=== PATIENT | male | born 1975 ===

== ENCOUNTER 2022-02-01 20:30 | Inpatient (IN) ==
[2022-02-01] MEDS ORDERED: LORazepam 2 mg VIAL 1 ml IV PUSH ONE ×3 (22:17→23:30)
[2022-02-01] MEDS ORDERED: Lorazepam PYXIS KEY PRN ×3 (22:17→23:30)
[2022-02-01] MEDS ORDERED: Amoxicillin/Clavul 875/125 TAB (Augmentin 875 tab) PO ONE (22:42)
[2022-02-01 22:44] LABS: ABS Basophils 0.1 10^3/ul (0-0.2); ABS Eosinophils 0.1 10^3/ul (0-0.6); ABS Lymphocytes 0.8 10^3/ul (1.0-4.8); ABS Monocytes 0.5 10^3/ul (0-0.8); ABS Neutrophils 5.4 10^3/ul (1.5-7.7); Eosinophil % 1.2 %; Hematocrit 38 % (42-52); Hemoglobin 12.8 g/dL (14.0-18.0); Lymphocyte % 11.4 %; Mean Corpuscular HGB Conc 34 g/dL (31-36); Mean Corpuscular Hemoglobin 34 pg (27-31); Mean Corpuscular Volume 101 fL (80-94); Mean Platelet Volume 6.8 fL (7.4-10.4); Platelet Count 176 10^3/uL (150-450); Red Blood Count 3.77 10^6 /uL (4.18-5.48); Red Cell Distribution Width 13 % (10-15); White Blood Count 6.8 10^3/uL (3.5-10.8)
[2022-02-01 23:22] LABS: ALT 101 U/L (7-52); AST 138 U/L (13-39); Albumin 4.5 g/dL (3.2-5.2); Albumin/Globulin Ratio 1.8 (1-3); Alkaline Phosphatase 158 U/L (35-149); Anion Gap 12 mmol/L (2-11); Blood Urea Nitrogen 12 mg/dL (6-24); C Reactive Protein 13.89 mg/L (<8.01); CO2 Carbon Dioxide 26 mmol/L (22-32); Calcium 9.4 mg/dL (8.6-10.3); Chloride 101 mmol/L (101-111); Creatine Kinase 590 U/L (10-223); Globulin 2.5 g/dL (2-4); Glucose 106 mg/dL (70-100); Magnesium 1.5 mg/dL (1.9-2.7); Potassium 3.6 mmol/L (3.5-5.0); Sodium 139 mmol/L (135-145); eGFR CKD-EPI 113.2 (>60)
[2022-02-01] MEDS ORDERED: Magnesium Sulfate 2 gm BAG 2 GM/50 ML BAG IVPB ONE (23:23)
[2022-02-01] MEDS ORDERED: Potassium Chlor 20 meq TAB.ER PO ONE (23:28)
[2022-02-02] MEDS ORDERED: Ondansetron 4 mg VIAL 2 MG/ML 2 ml VIAL IV PRN (00:06)
[2022-02-02] MEDS ORDERED: Thiamine 100 MG/ML 2 ml VIAL (200 mg) IM ONE (00:11)
[2022-02-02] MEDS ORDERED: LORazepam 2 mg VIAL 1 ml IV PUSH SCH (01:00)
[2022-02-02 01:14] LABS: Activated Partial Thrombo Time 31.2 seconds (26.0-38.0); INR 1.11 (0.89-1.11)
[2022-02-02 01:41] LABS: Alcohol, S < 13 mg/dL (<13)
[2022-02-02] MEDS ORDERED: Amoxicillin/Clavul 875/125 TAB (Augmentin 875 tab) PO SCH (09:00)
[2022-02-02] MEDS ORDERED: Multivitamins/Minerals TAB PO SCH (09:00)
[2022-02-02 14:12] VITALS: BP 144/98
== END 2022-02-02 14:11 | disposition home or self-care (01) | DRG 897 ==
LOC: ED 20:30 → SUATTDRO 02-02 00:06 → EDHOLD 02-02 00:06
PROVIDERS: ADMIT Internal Medicine; ATTEND Student in an Organized Health Care Education/Training Program